=== PATIENT | male | born 1970 | race African-American/Black ===

== ENCOUNTER 2024-12-24 07:41 | Inpatient (IN) | payer MEDICAID, OTHER ==
[~2024-12-24] VITALS: Ht 182.9 cm; Wt 316.2 kg
[2024-12-24 07:44] VITALS: O2SAT 96
[2024-12-24 08:40] LABS: BASOPHILS % 0.3 % (0.0-2.0); EOSINOPHILS % 2.1 % (0.0-5.0); HEMATOCRIT. 43.3 % (42.0-52.0); HEMOGLOBIN. 13.7 g/dL (14.0-18.0); LYMPHOCYTES % 8.5 % (20.0-50.0); MEAN PLATELET VOLUME 8.9 fl (7.4-10.4); MONOCYTES % 3.0 % (2.0-8.0); NEUTROPHILS % 86.1 % (40.0-76.0); PLATELET 287 x1000/uL (130-400); RED BLOOD CELL COUNT 5.28 mill/uL (4.7-6.1); RED CELL DISTRIBUTION WIDTH 14.7 % (11.6-14.6)
[2024-12-24 09:02] LABS: CREATININE 1.0 mg/dL (0.6-1.3); UREA NITROGEN BLOOD 14 mg/dL (9-23)
[2024-12-24 09:03] LABS: ETHANOL BLOOD < 10 mg/dL (<10)
[2024-12-24 09:20] LABS: CLARITY URINE CLEAR (CLEAR); COLOR URINE YELLOW (YELLOW); GLUCOSE URINE NEGATIVE (NEGATIVE); KETONES URINE 1+ (NEGATIVE); LEUKOCYTE ESTERASE URINE NEGATIVE (NEGATIVE); NITRITE URINE NEGATIVE (NEGATIVE); OCCULT BLOOD URINE NEGATIVE (NEGATIVE); PH URINE 5.0 (4.5-8.0); PROTEIN URINE 2+ (NEGATIVE); SPECIFIC GRAVITY URINE 1.019 (1.005-1.030); UROBILINOGEN URINE 1.0 E.U./dL (0.2-1.0)
[2024-12-24 09:40] LABS: *AMPHETAMINES SCREEN URINE NEGATIVE (NEGATIVE); *BARBITURATES SCREEN URINE NEGATIVE (NEGATIVE); *BENZODIAZEPINES SCREEN URINE PRESUMPTIVE POSITIVE (NEGATIVE); *COCAINE SCREEN URINE NEGATIVE (NEGATIVE); CANNABINOID URINE SCREEN PRESUMPTIVE POSITIVE (NEGATIVE); ECSTASY MDMA SCREEN URINE NEGATIVE (NEGATIVE); METHADONE URINE SCREEN NEGATIVE (NEGATIVE); OPIATES URINE SCREEN NEGATIVE (NEGATIVE); PHENCYCLIDINE URINE SCREEN NEGATIVE (NEGATIVE)
[2024-12-24 09:51] LABS: BACTERIA URINE TRACE; SQUAMOUS EPITHELIAL CELL URINE 1+ /lpf (RARE/1+)
[2024-12-24 09:52] LABS: WBC URINE 0-2 /hpf (0-2)
[2024-12-24 09:53] LABS: RBC URINE NONE SEEN /hpf (0-2)
[2024-12-24] MEDS ORDERED: GUAIFENESIN 200MG/10ML SUGAR FREE UDC PO PRN (11:15)
[2024-12-24] MEDS ORDERED: CLONIDINE 0.1MG TABLET PO PRN (11:15)
[2024-12-24] MEDS ORDERED: LORAZEPAM 2MG/ML UD SYRINGE IV PRN (11:15)
[2024-12-24] MEDS ORDERED: DEXTROSE 50% WATER 50ML SYRINGE IV PRN (11:15)
[2024-12-24] MEDS ORDERED: ACETAMINOPHEN 325MG TABLET PO PRN (11:15)
[2024-12-24] MEDS ORDERED: MAGNESIUM/ALUMINUM HYDROXIDE/SIMETHICONE 30ML UDC PO PRN (11:15)
[2024-12-24] MEDS ORDERED: IPRATROPIUM/ALBUTEROL 0.5-3(2.5)MG/3ML NEB HHN PRN (11:15)
[2024-12-24] MEDS ORDERED: DOCUSATE SODIUM 100MG CAPSULE PO PRN (11:15)
[2024-12-24] MEDS ORDERED: ONDANSETRON HCL 4MG/2ML INJ IV PRN (11:15)
[2024-12-24 11:37] VITALS: BP 148/82; PULSE 88; RESP 20; TEMP 36.4; O2SAT 97
[2024-12-24 11:38] VITALS: BP 142/82; PULSE 88; RESP 20; TEMP 36.4736
[2024-12-24] MEDS: BLOOD SUGAR DIAGNOSTIC STRIP TEST SCH (12:46)
[2024-12-24] MEDS: INSULIN LISPRO 100 UNITS/ML SUBCUT SCH (12:49)
[2024-12-24] MEDS ORDERED: SEMA0.253 INJ (13:08)
[2024-12-24] MEDS ORDERED: ATOR10TA PO (13:08)
[2024-12-24 13:31] LABS: BG BASE EXCESS -1.1 mmol/L (-2.0-3.0); BG CARBOXYHEMOGLOBIN 1.0 % (0.5-1.5); BG DEOXYHEMOGLOBIN 1.5 % (0.0-5.0); BG FRACTION INSPIRED OXYGEN 21; BG HCO3 ACT 21.9 mmol/L (21.0-28.0); BG METHEMOGLOBIN 0.0 % (0.5-1.5); BG OXYGEN SATURATION 98.5 % (94.0-98.0); BG OXYHEMOGLOBIN 97.5 % (94.0-98.0); BG PCO2 31.8 mmHg (35.0-48.0); BG PH 7.455 (7.350-7.450); BG PO2 107.4 mmHg (83.0-108.0); BG SAMPLE SITE RIGHT RADIAL; BG TOTAL HEMOGLOBIN 14.7 g/dL (13.5-17.5); BG VENT MODE ROOM AIR
[2024-12-24 14:21] LABS: LDL CHOLESTEROL 66 mg/dL (5-100)
[2024-12-24 14:22] LABS: PHOSPHORUS 2.6 mg/dL (2.5-4.9)
[2024-12-24 14:43] LABS: TROPONIN I HIGH SENSITIVITY 144 ng/L (3.0-53)
[2024-12-24 15:26] LABS: TRIGLYCERIDE 68 mg/dL (0-150)
[2024-12-24 16:00] VITALS: BP 150/84; PULSE 90; RESP 20; TEMP 36.5; O2SAT 97
[2024-12-24] MEDS: SODIUM CHLORIDE 0.9% 1,000 ML IV SCH (16:11)
[2024-12-24] MEDS: LEVETIRACETAM 1500MG PREMIX 100 ML IV NR (16:12)
[2024-12-24] MEDS: CEFTRIAXONE 2GM/50ML 50 ML IV SCH (17:37)
[2024-12-24] MEDS: VANCOMYCIN 1G PREMIX 200 ML IV SCH (18:23)
[2024-12-24 20:00] VITALS: BP 125/79; PULSE 95; RESP 15; TEMP 36.9; O2SAT 97
[2024-12-24] MEDS: ACETAMINOPHEN 325MG TABLET PO PRN (20:26)
[2024-12-24] MEDS: LEVETIRACETAM 1500MG PREMIX 100 ML IV SCH (21:36)
[2024-12-24] MEDS: ENOXAPARIN 40MG/0.4ML SYR SUBCUT SCH (21:51)
[2024-12-25] VITALS: BP 141/76; PULSE 97; RESP 17; TEMP 36.6; O2SAT 97
[2024-12-25 01:56] LABS: TROPONIN I HIGH SENSITIVITY 111 ng/L (3.0-53)
[2024-12-25] MEDS: VANCOMYCIN 1.5GM PMX (XELLIA) 300 ML IV SCH (01:57)
[2024-12-25 04:00] VITALS: BP 116/81; PULSE 96; RESP 16; TEMP 36.6; O2SAT 96
== END 2024-12-25 06:15 | disposition left against medical advice (07) | DRG 101 ==
LOC: ER 07:44 → 8WST 09:37 → ENRESERV 10:21
PROVIDERS: ADMIT Hospitalist; ATTEND Hospitalist
DX: G40.409 Other generalized epilepsy and epileptic syndromes, not intractable, without status epilepticus (principal); L03.116 Cellulitis of left lower limb; Z68.45 Body mass index [BMI] 70 or greater, adult; E66.01 Morbid (severe) obesity due to excess calories; E78.5 Hyperlipidemia, unspecified; R73.03 Prediabetes; Z53.29 Procedure and treatment not carried out because of patient's decision for other reasons; S99.822A Other specified injuries of left foot, initial encounter; X58.XXXA Exposure to other specified factors, initial encounter; D72.829 Elevated white blood cell count, unspecified; Z88.6 Allergy status to analgesic agent; Y93.89 Activity, other specified; Y92.89 Other specified places as the place of occurrence of the external cause; Y99.8 Other external cause status
CPT/HCPCS: 36415; 36600; 71045; 80048; 80061; 80305; 80320; 81003; 82306; 82375; 82550; 82805; 82962; 83036; 83605; 83735; 83880; 84100; 84145; 84443; 84484; 85025; 93005; 99285; A4606; J0696; J1650; J1953; J3373; G0480

== ENCOUNTER 2025-02-23 10:50 | Emergency (ER) | payer OTHER ==
[~2025-02-23] VITALS: Ht 185.4 cm; Wt 227.0 kg
[~2025-02-23 10:50] MED LIST: ATOR10TA PO; SEMA0.253 INJ
[2025-02-23 10:54] VITALS: O2SAT 97
[2025-02-23] MEDS: LEVETIRACETAM 500MG PREMIX 100 ML IV ONE (11:32)
[2025-02-23 12:16] LABS: CLARITY URINE CLEAR (CLEAR); COLOR URINE YELLOW (YELLOW); GLUCOSE URINE NEGATIVE (NEGATIVE); KETONES URINE TRACE (NEGATIVE); LEUKOCYTE ESTERASE URINE NEGATIVE (NEGATIVE); NITRITE URINE NEGATIVE (NEGATIVE); OCCULT BLOOD URINE NEGATIVE (NEGATIVE); PH URINE 5.5 (4.5-8.0); PROTEIN URINE 2+ (NEGATIVE); SPECIFIC GRAVITY URINE 1.021 (1.005-1.030); UROBILINOGEN URINE 1.0 E.U./dL (0.2-1.0)
[2025-02-23 12:25] LABS: HEMATOCRIT. 46.6 % (42.0-52.0); HEMOGLOBIN. 14.7 g/dL (14.0-18.0); MEAN PLATELET VOLUME 8.7 fl (7.4-10.4); PLATELET 278 x1000/uL (130-400); RED BLOOD CELL COUNT 5.79 mill/uL (4.7-6.1); RED CELL DISTRIBUTION WIDTH 14.8 % (11.6-14.6)
[2025-02-23 12:33] LABS: *AMPHETAMINES SCREEN URINE NEGATIVE (NEGATIVE); *BARBITURATES SCREEN URINE NEGATIVE (NEGATIVE); *BENZODIAZEPINES SCREEN URINE PRESUMPTIVE POSITIVE (NEGATIVE)
[2025-02-23 12:34] LABS: *COCAINE SCREEN URINE NEGATIVE (NEGATIVE); CANNABINOID URINE SCREEN PRESUMPTIVE POSITIVE (NEGATIVE); ECSTASY MDMA SCREEN URINE NEGATIVE (NEGATIVE); METHADONE URINE SCREEN NEGATIVE (NEGATIVE); OPIATES URINE SCREEN NEGATIVE (NEGATIVE); PHENCYCLIDINE URINE SCREEN NEGATIVE (NEGATIVE)
[2025-02-23 12:41] LABS: CREATININE 0.9 mg/dL (0.6-1.3); UREA NITROGEN BLOOD 11 mg/dL (9-23)
[2025-02-23 12:43] LABS: ASPARTATE AMINOTRANSFERASE 11 IU/L (<34); BILIRUBIN DIRECT 0.2 mg/dL (<=3.0); BILIRUBIN TOTAL 0.5 mg/dL (0.1-1.0); PROTEIN TOTAL 7.9 g/dL (6.0-8.3)
[2025-02-23 12:47] LABS: COARSE GRANULAR CASTS URINE 0-5 /lpf; MUCUS URINE 2+ /lpf (NONE/TRACE)
[2025-02-23 12:57] LABS: FINE GRANULAR CASTS URINE 0-5 /lpf; RBC URINE NONE SEEN /hpf (0-2); SQUAMOUS EPITHELIAL CELL URINE FEW /lpf (RARE/1+); WBC URINE 0-2 /hpf (0-2)
[2025-02-23 12:58] LABS: BACTERIA URINE NONE SEEN
[2025-02-23 14:06] VITALS: BP 152/84; PULSE 82; RESP 19; TEMP 37; O2SAT 98
[2025-02-23 17:36] LABS: BAND% 4.0 % (1.0-6.0); LYMPHOCYTES % MANUAL 5.0 % (20.0-50.0); MONOCYTES % MANUAL 3.0 % (2.0-8.0); NEUTROPHILS % MANUAL 88.0 % (45.0-75.0); PLATELET ESTIMATE NORMAL; PLATELET SATELLITISM FEW
== END 2025-02-23 14:44 | disposition home or self-care (01) ==
LOC: EDBD 10:50 → ER 10:50
DX: G40.909 Epilepsy, unspecified, not intractable, without status epilepticus (principal); E78.00 Pure hypercholesterolemia, unspecified; Z79.899 Other long term (current) drug therapy; Z88.6 Allergy status to analgesic agent
CPT/HCPCS: 80076; 80305; 80048; 81003; 80320; 85025; 36415; 96365; 99284; J1953; 99291; A4606; G0480